=== PATIENT | female | born 1990 ===

== ENCOUNTER 2016-07-31 09:35 | Outpatient (CLI) | payer OTHER ==
--- NOTE | 2016-07-31 10:08 | XRay Report ---
CHEST TWO VIEWS: 07/31/16 09:35:00 CLINICAL: Cough.Upper respiratory infection. COMPARISON: None FINDINGS: Normal heart and pulmonary vasculature. The lungs are normally expanded and clear.The bones and soft tissues are unremarkable. IMPRESSION: Normal chest.
== END 2016-07-31 09:36 | disposition home or self-care (01) ==
LOC: SPVIMAG 09:35
PROVIDERS: ATTEND Family Medicine
DX: J06.9 Acute upper respiratory infection, unspecified (principal)
CPT/HCPCS: 71020